=== PATIENT | male | born 1990 | race Caucasian/White ===

== ENCOUNTER 2020-10-30 16:56 | Emergency (ER) | payer OTHER ==
[~2020-10-30] VITALS: Ht 172.7 cm; Wt 79.4 kg
[2020-10-30] MEDS ORDERED: Norco 5-325 Ta1 EACH PO (19:03)
== END 2020-10-30 19:28 | disposition home or self-care (01) ==
LOC: ER 16:56
DX: S62.522A Displaced fracture of distal phalanx of left thumb, initial encounter for closed fracture (principal); W23.0XXA Caught, crushed, jammed, or pinched between moving objects, initial encounter
CPT/HCPCS: 73140; 99283-25; A9270